=== PATIENT | female | born 1940 | race Caucasian/White ===

== ENCOUNTER 2020-08-19 23:03 | Observation (INO) ==
[2020-08-19] MEDS ORDERED: Ondansetron 4 MG/2 ML VIAL IVP ONE (23:33)
[2020-08-19] MEDS ORDERED: Ondansetron ODT 4 MG TAB.RAPDIS SL ONE (23:55)
[2020-08-20 00:35] LABS: Basophils % 0.3 %; Eosinophils # 0.2 K/mcL (0.0-0.6); Eosinophils % 2.6 %; Hematocrit 34.9 % (35.3-44.9); Immature Granulocytes % 0.2 % (0-4); Lymphocytes # 1.8 K/mcL (0.6-4.6); Lymphocytes % 19.8 %; Mean Corpuscular HGB Conc 31.5 g/dL (31.6-35.5); Mean Corpuscular Hemoglobin 29.1 pg (28.0-33.3); Mean Corpuscular Volume 92.3 fL (83.0-100.0); Mean Platelet Volume 10.4 fL (9.4-12.4); Monocytes # 0.6 K/mcL (0.0-1.3); Monocytes % 6.7 %; Neutrophils # 6.5 K/mcL (1.6-8.9); Platelet Count 258 K/mcL (140-400); Red Blood Count 3.78 M/mcL (3.82-4.97); Red Cell Distribution Width 13.4 % (11.5-14.5); Segmented Neutrophils % 70.4 %; White Blood Count 9.3 K/mcL (4.3-11.1)
[2020-08-20] MEDS ORDERED: Aspirin 325 MG TABLET PO ONE (00:54)
[2020-08-20 01:57] LABS: Alanine Aminotransferase 11 Units/L (7-52); Albumin 3.7 g/dL (3.5-5.7); Albumin/Globulin Ratio 1.2 (1.1-2.2); Alkaline Phosphatase 59 Units/L (34-104); Aspartate Amino Transferase 12 Units/L (13-39); BUN/Creatinine Ratio 23 (6-26); Bilirubin,Direct 0.1 mg/dL (0.0-0.2); Bilirubin,Indirect 0.3 mg/dL (0.0-1.0); Bilirubin,Total 0.4 mg/dL (0.3-1.0); Blood Urea Nitrogen 24 mg/dL (8-23); Calcium 8.4 mg/dL (8.6-10.3); Carbon Dioxide 25 mEq/L (23-29); Chloride 104 mEq/L (98-107); Glucose 135 mg/dL (70-105); Lipase 28 Units/L (11-82); Osmolality,Calculated 292 (280-300); Potassium 3.4 mEq/L (3.5-5.1); Sodium 138 mEq/L (136-145); Total Protein 6.7 g/dL (6.4-8.9); eGFR For African Americans > 60 (> 60); eGFR For Non-African Americans 52 (> 60)
[2020-08-20] MEDS ORDERED: *HR* Metoprolol 5 MG/5 ML VIAL IVP PRN (03:07)
[2020-08-20] MEDS ORDERED: Perflutren Lipid Microsphere 1.3 ML in 0.9 % Sodium Chloride 8.7 ML IVP PRN (03:08)
[2020-08-20] MEDS ORDERED: Naloxone 0.4 MG/ML INJ IVP PRN (03:10)
[2020-08-20] MEDS ORDERED: Ondansetron 4 MG/2 ML VIAL IVP PRN (03:10)
[2020-08-20] MEDS ORDERED: Gadolinium Contrast Agent (WT Based) IV PRN (03:38)
[2020-08-20] MEDS ORDERED: 0.9 % Sodium Chloride 1,000 ML IVC SCH (03:45)
[2020-08-20 06:23] LABS: Chol/HDL Ratio 3.8 (0-4.9)
[2020-08-20] MEDS: Aspirin 81 MG TAB.CHEW PO SCH (08:17)
[2020-08-20 09:49] LABS: Estimated Average Glucose 131 mg/dl; Hemoglobin A1C 6.2 %
[2020-08-21 05:16] LABS: Basophils % 0.4 %; Eosinophils # 0.1 K/mcL (0.0-0.6); Eosinophils % 1.5 %; Immature Granulocytes % 0.2 % (0-4); Lymphocytes # 2.1 K/mcL (0.6-4.6); Lymphocytes % 26.1 %; Mean Corpuscular HGB Conc 31.3 g/dL (31.6-35.5); Mean Corpuscular Hemoglobin 28.9 pg (28.0-33.3); Mean Corpuscular Volume 92.5 fL (83.0-100.0); Mean Platelet Volume 10.3 fL (9.4-12.4); Monocytes # 0.6 K/mcL (0.0-1.3); Monocytes % 7.4 %; Neutrophils # 5.2 K/mcL (1.6-8.9); Platelet Count 246 K/mcL (140-400); Red Blood Count 3.46 M/mcL (3.82-4.97); Red Cell Distribution Width 13.6 % (11.5-14.5); Segmented Neutrophils % 64.4 %; White Blood Count 8.1 K/mcL (4.3-11.1)
[2020-08-21 05:36] LABS: BUN/Creatinine Ratio 18 (6-26); Blood Urea Nitrogen 17 mg/dL (8-23); Calcium 8.4 mg/dL (8.6-10.3); Carbon Dioxide 27 mEq/L (23-29); Chloride 108 mEq/L (98-107); Glucose 100 mg/dL (70-105); Osmolality,Calculated 296 (280-300); Potassium 3.6 mEq/L (3.5-5.1); Sodium 142 mEq/L (136-145); eGFR For African Americans > 60 (> 60); eGFR For Non-African Americans 57 (> 60)
[2020-08-21] MEDS ORDERED: hydroCHLOROthiazide 25 MG TABLET PO SCH (09:00)
[2020-08-21] MEDS ORDERED: Tolterodine LA (24 HR) 2 MG CAP.ER.24H PO SCH (09:00)
[2020-08-21] MEDS: Aspirin 81 MG TAB.CHEW PO SCH (10:18)
[2020-08-21] MEDS ORDERED: Cholecalciferol (D-3) 1,000 UNIT (25MCG) TABLET PO SCH (12:30)
[2020-08-21 15:58] VITALS: BP 127/72
== END 2020-08-21 18:04 | disposition home health service (06) ==
LOC: EMEROOARM 23:03 → 3ANU 23:03 → SUATTDRO 08-20 02:57 → 3ANU 08-20 03:44
PROVIDERS: ADMIT Internal Medicine; ATTEND Student in an Organized Health Care Education/Training Program

== ENCOUNTER 2021-11-27 11:09 | Observation (INO) ==
[2021-11-27] MEDS ORDERED: Iopamidol - 370 500 ML MLS IVP ONE (11:29)
[2021-11-27] MEDS ORDERED: Ondansetron 4 MG/2 ML VIAL IVP ONE (12:09)
[2021-11-27 12:10] LABS: Basophils % 0.3 %; Eosinophils # 0.2 K/mcL (0.0-0.6); Eosinophils % 2.3 %; Hematocrit 32.3 % (35.3-44.9); Hemoglobin 10.5 g/dL (11.5-15.4); Immature Granulocytes % 0.3 % (0-4); Lymphocytes # 1.8 K/mcL (0.6-4.6); Lymphocytes % 22.6 %; Mean Corpuscular HGB Conc 32.5 g/dL (31.6-35.5); Mean Corpuscular Hemoglobin 29.9 pg (28.0-33.3); Monocytes # 0.5 K/mcL (0.0-1.3); Monocytes % 6.7 %; Neutrophils # 5.3 K/mcL (1.6-8.9); Platelet Count 258 K/mcL (140-400); Red Blood Count 3.51 M/mcL (3.82-4.97); Red Cell Distribution Width 13.5 % (11.5-14.5); Segmented Neutrophils % 67.8 %; White Blood Count 7.8 K/mcL (4.3-11.1)
[2021-11-27 12:12] LABS: VBG HCO3 27 mEq/L (21-27); VBG PCO2 48 mmHg (41-51); VBG PH 7.36 pH Units (7.32-7.42); VBG PO2 49 mmHg (25-50)
[2021-11-27 12:33] LABS: Alanine Aminotransferase 11 Units/L (7-52); Albumin 3.8 g/dL (3.5-5.7); Albumin/Globulin Ratio 1.3 (1.1-2.2); Alkaline Phosphatase 65 Units/L (34-104); Aspartate Amino Transferase 12 Units/L (13-39); BUN/Creatinine Ratio 15 (6-26); Bilirubin,Direct 0.1 mg/dL (0.0-0.2); Bilirubin,Indirect 0.5 mg/dL (0.0-1.0); Bilirubin,Total 0.6 mg/dL (0.3-1.0); Blood Urea Nitrogen 23 mg/dL (8-23); Calcium 9.2 mg/dL (8.6-10.3); Carbon Dioxide 29 mEq/L (23-29); Chloride 105 mEq/L (98-107); Glucose 128 mg/dL (70-105); Lipase 34 Units/L (11-82); Magnesium 1.9 mg/dL (1.6-2.6); Osmolality,Calculated 295 (280-300); Potassium 4.2 mEq/L (3.5-5.1); Sodium 140 mEq/L (136-145); Total Protein 6.8 g/dL (6.4-8.9); Troponin I < 0.03 ng/mL (< 0.04)
[2021-11-27 12:46] LABS: Thyroid Stimulating Hormone 3.346 mcIU/mL (0.340-5.600)
[2021-11-27] MEDS ORDERED: 0.9 % Sodium Chloride 1,000 ML IVC ONE (13:49)
[2021-11-27] MEDS ORDERED: 0.9 % Sodium Chloride 500 ML IVC ONE (13:57)
[2021-11-27] MEDS ORDERED: Acetaminophen 325 MG TABLET PO PRN (14:02)
[2021-11-27] MEDS ORDERED: Naloxone 0.4 MG/ML INJ IVP PRN (14:02)
[2021-11-27] MEDS ORDERED: Ondansetron ODT 4 MG TAB.RAPDIS SL PRN (14:02)
[2021-11-27 14:42] LABS: Influenza A PCR Negative (Negative); Influenza B PCR Negative (Negative); Resp. Syncytial Virus PCR Negative (Negative); SARS-CoV-2 by PCR (In House) Negative (Negative)
[2021-11-27 14:55] LABS: % Iron Saturation 16 % (15-50); Iron 57 mcg/dL (50-170); Phosphorous 3.8 mg/dL (2.7-4.5); Transferrin 248 mg/dL (203-362)
[2021-11-27 15:19] LABS: Ferritin 63 ng/mL (10-120)
[2021-11-27] MEDS ORDERED: Melatonin 3 MG TABLET PO PRN (16:51)
[2021-11-27] MEDS: lisinopriL 10 MG TABLET PO SCH (17:20)
[2021-11-28 00:46] LABS: Bilirubin,Urine Negative (Negative); Blood,Urine Negative (Negative); Clarity,Urine Clear (Clear); Color,Urine Colorless (Yellow); Glucose,Urine (UA) Normal (Normal); Ketones,Urine Negative (Negative); Leukocyte Esterase,Urine Negative (Negative); Nitrite,Urine Negative (Negative); Protein,Urine Negative (Neg-Trace); Specific Gravity,Urine 1.027 (1.010-1.025); Squamous Epithelial Cell,Urine Few per hpf (None-Few); Urobilinogen,Urine Normal (Normal); WBC,Urine 0-3 per hpf (0-3)
[2021-11-28 01:52] LABS: Hemoglobin 10.1 g/dL (11.5-15.4); Mean Corpuscular HGB Conc 32.6 g/dL (31.6-35.5); Mean Corpuscular Hemoglobin 30.1 pg (28.0-33.3); Mean Corpuscular Volume 92.3 fL (83.0-100.0); Mean Platelet Volume 10.2 fL (9.4-12.4); Platelet Count 242 K/mcL (140-400); Red Blood Count 3.36 M/mcL (3.82-4.97); Red Cell Distribution Width 13.5 % (11.5-14.5); White Blood Count 8.3 K/mcL (4.3-11.1)
[2021-11-28 02:04] LABS: Calcium 8.4 mg/dL (8.6-10.3); Chol/HDL Ratio 4.1 (0-4.9); Magnesium 1.7 mg/dL (1.6-2.6); Phosphorous 3.6 mg/dL (2.7-4.5); Potassium 3.6 mEq/L (3.5-5.1)
[2021-11-28 07:10] VITALS: O2SAT 95
[2021-11-28] MEDS: lisinopriL 10 MG TABLET PO SCH (07:51)
[2021-11-28] MEDS ORDERED: Metoprolol XL (24 HR) Succ 50 MG TAB.ER.24H PO SCH (09:00)
[2021-11-28] MEDS ORDERED: Aspirin 81 MG TAB.CHEW PO SCH (09:00)
[2021-11-28] MEDS ORDERED: Cholecalciferol (D-3) 1,000 UNIT (25MCG) TABLET PO SCH (09:00)
[2021-11-28 11:08] VITALS: TEMP 97.6
[2021-11-28 11:10] VITALS: BP 147/72; PULSE 64
== END 2021-11-28 15:18 | disposition home or self-care (01) ==
LOC: 3BNU 11:09 → EMEROOARM 11:09 → SUATTDRO 14:45 → 3BNU 16:02
PROVIDERS: ADMIT Internal Medicine; ATTEND Internal Medicine